=== PATIENT | female | born 1970 | race Caucasian/White ===

== ENCOUNTER 2023-05-19 10:26 | Day surgery (SDC) | payer OTHER ==
[2023-05-12 15:15] VITALS: BMI 27.4
[~2023-05-19 10:26] MED LIST: LACTATED RINGERS 1,000 ML IV SCH; LIDOCAINE 1% (10MG/ML) FOR IV START INTRADERMA PRN
[2023-05-19 11:02] VITALS: RESP 16; TEMP 96.9
[2023-05-19] MEDS ORDERED: LIDOCAINE 2% INJ 20 MG/ML (2 ML VIAL) ONE (12:07)
[2023-05-19] MEDS ORDERED: PROPOFOL 10 MG/ML 20 ML VIAL IV ONE (12:07)
--- NOTE | 2023-05-19 12:14 | P.PCN ---
Date of Procedure: 05/19/23 Procedure(s) Performed: BRIEF HISTORY: Patient is a 52-year-old, pleasant, white female scheduled for an upper endoscopy as a part of evaluation of long-standing history of GERD and intermittent dysphagia to solids. PROCEDURE PERFORMED: Esophagogastroduodenoscopy with biopsy. PREOPERATIVE DIAGNOSIS: Loss history of GERD and intermittent dysphagia to solids. IV sedation per anesthesia. PROCEDURE: After informed consent was obtained, the patient was brought into the endoscopy unit. IV sedation was administered by Anesthesia under continuous monitoring. Initially the Olympus GIF-140 video endoscope was inserted into the mouth. Esophagus intubated without any difficulty. It was gradually advanced into the stomach and duodenum and carefully examined. The bulb and the second part of the duodenum appeared normal. The scope at this time was withdrawn to the stomach, adequately insufflated with air, and upon careful examination, mucosa of the antrum, had mild gastritis and biopsies were done from this area. Mucosa of the body, cardia and the fundus appeared normal. The scope was then withdrawn into the esophagus. The GE junction was located at 39 cm from the incisors. There was circumferential erythema with some erosions at the distal esophagus consistent with LA grade a reflux esophagitis. Rest of the esophagus appeared normal and the patient tolerated the procedure well. IMPRESSION: 1. Circumferential erythema with one superficial erosion at the GE junction consistent with LA grade B reflux esophagitis. 2. Mild antral gastritis 3. No evidence of esophageal stricture. RECOMMENDATIONS: The findings of this examination were discussed with the patient as well as a family. Follow with the biopsy results. She was advised to continue with Protonix 40 mg daily and follow antireflux measures. She'll be seen in office in 3-4 months.
[2023-05-19 12:39] VITALS: BP 118/76; PULSE 62
== END 2023-05-19 12:51 | disposition home or self-care (01) ==
LOC: ORWHC2ENDO 10:26
PROVIDERS: ATTEND Internal Medicine Gastroenterology
DX: K29.50 Unspecified chronic gastritis without bleeding (principal); K21.00 Gastro-esophageal reflux disease with esophagitis, without bleeding; K31.9 Disease of stomach and duodenum, unspecified; E03.9 Hypothyroidism, unspecified; F41.9 Anxiety disorder, unspecified; Z79.899 Other long term (current) drug therapy
CPT/HCPCS: 88305; 88342; 43239; J2704; J2001

== ENCOUNTER → 2023-09-03 | Outpatient (CLI) | payer OTHER ==
--- NOTE | 2023-09-03 12:59 | CT ---
EXAMINATION TYPE: CT angio abdomen DATE OF EXAM: 09/03/2023 COMPARISON: NONE HISTORY: 52-year-old female M54.16, RADICULOPATHY, LUMBAR REGION. pre op lumbar sx, TECHNIQUE: Contiguous axial scanning of the abdomen before and after administration of 100 ml Omnipaq ue 370 IV contrast. Coronal and sagittal reconstructions performed. 3-D reconstructions generated on a dedicated independent workstation. CT DLP: 981 mGycm Automated exposure control for dose reduction was used. FINDINGS: Heart normal size without pericardial effusion. Lung bases clear without pleural effusion. Diminished attenuation of hepatic parenchyma and some focal fatty sparing along the gallbladder fossa . No abnormal gallbladder distention. Adrenal glands, kidneys, spleen with inferior splenule, and pancreas within normal limits. Mixing artifact within the splenic vein and main portal vein on the arterial phase imaging. No dilated small bowel, free fluid, or free air. No mesenteric or retroperitoneal lymphadenopathy. Mild stool burden. No pericolonic inflammatory change. The celiac axis, SMA, pelayo bilateral renal arteries, and GILBERTO are patent. Pelvis not imaged. Bones: Symmetric endplate spondylosis in the lower thoracic spine. Degenerative disc disease L5-S1 es pecially towards the left. IMPRESSION: 1. AT LEAST MODERATE HEPATIC STEATOSIS. CORRELATE WITH LFT's, LIPID PROFILE, AND PATIENT RISK FACTORS . 2. OTHERWISE, NO SPECIFIC ABNORMALITY SEEN.
== END | disposition home or self-care (01) ==
LOC: RADCTMAIN 09:07
PROVIDERS: ATTEND Neurological Surgery
DX: K76.0 Fatty (change of) liver, not elsewhere classified (principal); M54.16 Radiculopathy, lumbar region
CPT/HCPCS: 74175; Q9967

== ENCOUNTER → 2024-01-25 | Outpatient (CLI) | payer OTHER ==
--- NOTE | 2024-01-25 13:51 | CT ---
EXAMINATION TYPE: CT abdomen pelvis wo con DATE OF EXAM: 01/25/2024 COMPARISON: 09/03/2023 INDICATION: Lumbar surgery x1 mo ago. Pt now c/o abdominal pain, bloating, and pain with urination. DLP: 855 mGycm, Automated exposure control for dose reduction was used. CONTRAST: 0 mL of Isovue 300. Study performed with Oral Contrast TECHNIQUE: Axial images were obtained from above the diaphragm to the pubic rami in the axial plane a t 5 mm thick sections. Reconstructed images are reviewed on the computer in the coronal plane. FINDINGS: Limited CT sections are obtained the lung bases. The lung bases are clear. CT ABDOMEN: Liver: Normal Spleen: Normal Pancreas: Normal Adrenal glands: The adrenal glands are normal. Gallbladder: Normal Kidneys: No masses are evident. There is moderate left hydronephrosis. Hydroureter is present on the left. Increased density is adjacent to the psoas muscle. Retroperitoneal hemorrhage and rupture of th e renal collecting system should be considered. No obstructing renal stones are identified. Multiple phleboliths within the pelvis Aorta: Minimal Vascular calcification is within the aorta. Inferior vena cava: Normal. CT PELVIS: Loops of bowel within the abdomen and pelvis are normal. There are loops of bowel which are incom pletely distended or lack oral contrast limiting their evaluation. Appendix: Not identified. No dilated tubular structure inflammatory changes evident. Urinary bladder: Normal. Genitourinary structures: Uterus is absent. Adnexa are unremarkable. Osseous structures: No suspicious lytic or sclerotic lesions. IMPRESSION: 1. Ill-defined increased density along the left psoas muscle. Retroperitoneal hemorrhage should be c onsidered. This could be related to prior surgery. Rupture of the renal collecting system could be considered within the differential. 2. Hydronephrosis and mild hydroureter of the proximal ureter. Ureter is obscured by the increased de nsity in the retroperitoneal region.
== END | disposition home or self-care (01) ==
LOC: RADCTMAIN 11:05
PROVIDERS: ATTEND Neurological Surgery
DX: M47.896 Other spondylosis, lumbar region (principal); M54.16 Radiculopathy, lumbar region; N13.30 Unspecified hydronephrosis; K68.3 Retroperitoneal hematoma
CPT/HCPCS: 74176

== ENCOUNTER 2024-01-31 11:07 | Emergency (ER) | payer OTHER ==
[2024-01-31 12:00] VITALS: RESP 18; TEMP 98.4
--- NOTE | 2024-01-31 12:11 | ED ---
Abdominal Pain HPI - General Chief Complaint: Abdominal Pain Stated Complaint: ABD pain, bloating Time Seen by Provider: 01/31/24 11:20 Source: patient, RN notes reviewed Mode of arrival: ambulatory Limitations: no limitations - History of Present Illness Initial Comments: 53-year-old female presenting with diffuse abdominal pain x 6 weeks. States she had lumbar fusion surgery 6 weeks ago and has had pain and bloating ever since. States she had a CT of her abdomen and pelvis last week from her surgeon which revealed hydronephrosis. She was scheduled to receive another repeat CT however came in today due to pain worsening. States she feels bloated and can barely move or eat due to the pain. She was given Bactrim for possible UTI from her surgeon. Denies fever, dysuria, urinary frequency, urinary urgency, nausea, vomiting. The surgeon was Dr. Villasenor through [facility]. - Related Data Home Medications Medication Instructions Recorded Confirmed Ibuprofen [Motrin] 800 mg PO TID PRN 05/12/23 01/31/24 Levothyroxine Sodium 112 mcg PO DAILY 05/12/23 01/31/24 Pantoprazole [Protonix] 40 mg PO BID 05/12/23 01/31/24 Docusate Sodium [Dok] 100 mg PO BID PRN 01/31/24 01/31/24 Fluconazole [Diflucan] 100 mg PO DAILY 01/31/24 01/31/24 Gabapentin 600 mg PO TID 01/31/24 01/31/24 HYDROcodone/APAP 5-325MG [[place] 1 tab PO Q6HR PRN 01/31/24 01/31/24 5-325] Sulfamethox-Tmp 800-160Mg [Bactrim 1 tab PO Q12HR 01/31/24 01/31/24 DS 800-160 mg] methocarbamoL [Robaxin-750] 750 mg PO TID PRN 01/31/24 01/31/24 Allergies Allergy/AdvReac Type Severity Reaction Status Date / Time chlorahexadine AdvReac Itching Uncoded 01/31/24 11:19 Review of Systems ROS Statement: Those systems with pertinent positive or pertinent negative responses have been documented in the HPI. ROS Other: All systems not noted in ROS Statement are negative. Past Medical History Past Medical History: GERD/Reflux, Thyroid Disorder Additional Past Medical History / Comment(s): BACK PAIN History of Any Multi-Drug Resistant Organisms: None Reported Past Surgical History: Hysterectomy, Orthopedic Surgery Additional Past Surgical History / Comment(s): RT SHOULDER SX X 3. COLONOSCOPU. RT THYROIDECTOMY. lumbar fusion Past Anesthesia/Blood Transfusion Reactions: No Reported Reaction Past Psychological History: Anxiety, Depression Smoking Status: Former smoker Past Alcohol Use History: Occasional, Rare Past Drug Use History: None Reported - Past Family History Mother Family Medical History: Cancer Additional Family Medical History / Comment(s): SKIN General Exam Limitations: no limitations General appearance: alert, in no apparent distress ENT exam: Present: normal exam, mucous membranes moist Respiratory exam: Present: normal lung sounds bilaterally. Absent: respiratory distress, wheezes, rales, rhonchi, stridor Cardiovascular Exam: Present: regular rate, normal rhythm, normal heart sounds. Absent: systolic murmur, diastolic murmur, rubs, gallop, clicks GI/Abdominal exam: Present: soft, tenderness (Mild diffuse tenderness in all 4 quadrants. No skin changes.), normal bowel sounds. Absent: distended, guarding, rebound, rigid Back exam: Absent: CVA tenderness (R), CVA tenderness (L) Neurological exam: Present: alert, oriented X3, CN II-XII intact Psychiatric exam: Present: normal affect, normal mood Skin exam: Present: warm, dry, intact, normal color. Absent: rash Course Vital Signs 01/31/24 01/31/24 11:08 14:26 Temperature 98.4 F Pulse Rate 84 71 Respiratory 18 18 Rate Blood Pressure 137/83 123/81 O2 Sat by Pulse 98 99 Oximetry Medical Decision Making - Medical Decision Making Was pt. sent in by a medical professional or institution (, PA, CLINICAL SECRETARY, urgent care, hospital, or penitentiary...) When possible be specific @ -No Did you speak to anyone other than the patient for history (EMS, parent, family, police, friend...)? What history was obtained from this source @ -No Did you review nursing and triage notes (agree or disagree)? Why? @ -I reviewed and agree with nursing and triage notes Were old charts reviewed (outside hosp., previous admission, EMS record, old EKG, old radiological studies, urgent care reports/EKG's, penitentiary records)? Report findings @ -No old charts were reviewed Differential Diagnosis (chest pain, altered mental status, abdominal pain women, abdominal pain men, vaginal bleeding, weakness, fever, dyspnea, syncope, headache, dizziness, GI bleed, back pain, seizure, CVA, palpatations, mental health, musculoskeletal)? @ -Differential Abdominal Pain Women: Appendicitis, Cholecystitis, diverticulosis, ischemic bowel, pancreatitis, hepatitis, UTI, gastroenteritis, AAA, incarcerated hernia, bowel obstruction, constipation, inflammatory bowel, hepatitis, peptic ulcer disease, splenic infarction, perforated viscus, vulvitis, ovarian torsion, PID, kidney stone, placenta abruption, this is not meant to be an all-inclusive list EKG interpreted by me (3pts min.). @ -None X-rays interpreted by me (1pt min.). @ -None done CT interpreted by me (1pt min.). @ -CT of abdomen/pelvis revealed left hydronephrosis U/S interpreted by me (1pt. min.). @ -None done What testing was considered but not performed or refused? (CT, X-rays, U/S, labs)? Why? @ -None What meds were considered but not given or refused? Why? @ -None Did you discuss the management of the patient with other professionals (professionals i.e. DrSneha, PA, CLINICAL SECRETARY, lab, RT, psych nurse, forensic social worker, gizzard peeler, teacher, truant officer, watch case polisher)? Give summary @ -Discussed management of this case with Dr. Varela, Dr. Villasenor, and Dr. Chavez. Dr. Villasenor was contacted as he was patient's surgeon and pain likely related to surgery. Dr. Villasenor recommended urology consult for possible scope and ureter stent. Dr. Varela was contacted and recommended transfer to [facility]. Was smoking cessation discussed for >3mins.? @ -No Was critical care preformed (if so, how long)? @ -No Were there social determinants of health that impacted care today? How? (Homelessness, low income, unemployed, alcoholism, drug addiction, transportation, low edu. Level, literacy, decrease access to med. care, long term, rehab)? @ -No Was there de-escalation of care discussed even if they declined (Discuss DNR or withdrawal of care, Hospice)? DNR status @ -No What co-morbidities impacted this encounter? (DM, HTN, Smoking, COPD, CAD, Cancer, CVA, ARF, Chemo, Hep., AIDS, mental health diagnosis, sleep apnea, morbid obesity)? @ -None Was patient admitted / discharged? Hospital course, mention meds given and route, prescriptions, significant lab abnormalities, going to OR and other pertinent info. @ -Patient was transferred to [facility]. Patient was seen and evaluated for diffuse abdominal pain x 6 weeks status post lumbar fusion surgery. Vitals are stable. Patient has diffuse abdominal tenderness. Labs remarkable for lactic acid of 3. CT of abdomen and pelvis reveals left hydronephrosis. Patient's pain is controlled with IV morphine. Patient's surgeon Dr. Villasenor was contacted and advised urology consult. Dr. Varela urologist was contacted and recommended transfer to [facility] for care from original surgery team. Patient agreeable to plan and prefers transfer via private vehicle. Case discussed with Dr. Chavez. Undiagnosed new problem with uncertain prognosis? @ -No Drug Therapy requiring intensive monitoring for toxicity (Heparin, Nitro, Insulin, Cardizem)? @ -No Were any procedures done? @ -No Diagnosis/symptom? @ -Abdominal pain s/p surgery Acute, or Chronic, or Acute on Chronic? @ -Acute Uncomplicated (without systemic symptoms) or Complicated (systemic symptoms)? @ -Default Side effects of treatment? @ -No Exacerbation, Progression, or Severe Exacerbation? @ -No Poses a threat to life or bodily function? How? (Chest pain, USA, IA, pneumonia, PE, COPD, DKA, ARF, appy, cholecystitis, CVA, Diverticulitis, Homicidal, Suicidal, threat to staff... and all critical care pts) @ -No - Lab Data Result diagrams: 01/31/24 11:52 01/31/24 11:52 Lab Results 01/31/24 01/31/24 01/31/24 Range/Units 11:52 11:52 11:52 WBC 5.1 (3.8-10.6) k/uL RBC 4.57 (3.80-5.40) m/uL Hgb 14.1 (11.4-16.0) gm/dL Hct 44.4 (34.0-46.0) % MCV 97.0 (80.0-100.0) fL MCH 30.9 (25.0-35.0) pg MCHC 31.9 (31.0-37.0) g/dL RDW 14.4 (11.5-15.5) % Plt Count 309 (150-450) k/uL MPV 7.7 Neutrophils % 63 % Lymphocytes % 28 % Monocytes % 6 % Eosinophils % 1 % Basophils % 0 % Neutrophils # 3.2 (1.3-7.7) k/uL Lymphocytes # 1.4 (1.0-4.8) k/uL Monocytes # 0.3 (0-1.0) k/uL Eosinophils # 0.1 (0-0.7) k/uL Basophils # 0.0 (0-0.2) k/uL Hypochromasia Slight Sodium 140 (137-145) mmol/L Potassium 4.9 (3.5-5.1) mmol/L Chloride 105 (98-107) mmol/L Carbon Dioxide 24 (22-30) mmol/L Anion Gap 11 mmol/L BUN 14 (7-17) mg/dL Creatinine 0.67 (0.52-1.04) mg/dL Est GFR (CKD-EPI)AfAm >90 (>60 ml/min/1.73 sqM) Est GFR (CKD-EPI)NonAf >90 (>60 ml/min/1.73 sqM) Glucose 94 (74-99) mg/dL Lactic Ac Sepsis Rflx Plasma Lactic Acid Cornell (0.7-2.0) mmol/L Calcium 10.1 (8.4-10.2) mg/dL Total Bilirubin 0.4 (0.2-1.3) mg/dL AST 36 (14-36) U/L ALT 33 (4-34) U/L Alkaline Phosphatase 113 (38-126) U/L Total Protein 8.4 H (6.3-8.2) g/dL Albumin 4.8 (3.5-5.0) g/dL Lipase 73 (23-300) U/L Urine Color Colorless Urine Appearance Clear (Clear) Urine pH 5.0 (5.0-8.0) Ur Specific Alsen 1.004 (1.001-1.035) Urine Protein Negative (Negative) Urine Glucose (UA) Negative (Negative) Urine Ketones Negative (Negative) Urine Blood Negative (Negative) Urine Nitrite Negative (Negative) Urine Bilirubin Negative (Negative) Urine Urobilinogen <2.0 (<2.0) mg/dL Ur Leukocyte Esterase Negative (Negative) 01/31/24 01/31/24 01/31/24 Range/Units 11:52 12:37 14:46 WBC (3.8-10.6) k/uL RBC (3.80-5.40) m/uL Hgb (11.4-16.0) gm/dL Hct (34.0-46.0) % MCV (80.0-100.0) fL MCH (25.0-35.0) pg MCHC (31.0-37.0) g/dL RDW (11.5-15.5) % Plt Count (150-450) k/uL MPV Neutrophils % % Lymphocytes % % Monocytes % % Eosinophils % % Basophils % % Neutrophils # (1.3-7.7) k/uL Lymphocytes # (1.0-4.8) k/uL Monocytes # (0-1.0) k/uL Eosinophils # (0-0.7) k/uL Basophils # (0-0.2) k/uL Hypochromasia Sodium (137-145) mmol/L Potassium (3.5-5.1) mmol/L Chloride (98-107) mmol/L Carbon Dioxide (22-30) mmol/L Anion Gap mmol/L BUN (7-17) mg/dL Creatinine (0.52-1.04) mg/dL Est GFR (CKD-EPI)AfAm (>60 ml/min/1.73 sqM) Est GFR (CKD-EPI)NonAf (>60 ml/min/1.73 sqM) Glucose (74-99) mg/dL Lactic Ac Sepsis Rflx Y Plasma Lactic Acid Cornell 3.0 H* 2.3 H* (0.7-2.0) mmol/L Calcium (8.4-10.2) mg/dL Total Bilirubin (0.2-1.3) mg/dL AST (14-36) U/L ALT (4-34) U/L Alkaline Phosphatase (38-126) U/L Total Protein (6.3-8.2) g/dL Albumin (3.5-5.0) g/dL Lipase (23-300) U/L Urine Color Urine Appearance (Clear) Urine pH (5.0-8.0) Ur Specific Alsen (1.001-1.035) Urine Protein (Negative) Urine Glucose (UA) (Negative) Urine Ketones (Negative) Urine Blood (Negative) Urine Nitrite (Negative) Urine Bilirubin (Negative) Urine Urobilinogen (<2.0) mg/dL Ur Leukocyte Esterase (Negative) Disposition Clinical Impression: Abdominal pain, Hydronephrosis Disposition: OTHER INSTITUTION NOT DEFINED Condition: Stable Additional Instructions: Please go to [facility] immediately. Referrals: Lesia Sandhu DO [Primary Care Provider] - 1-2 days Time of Disposition: 16:13 - Out of Hospital Transfer - Req. Specs Out of Hospital Transfer - Requested Specifics: Other Emergency Center ([facility])
[2024-01-31 12:22] LABS: Basophils % (A) 0 %; Eosinophils # (A) 0.1 k/uL (0-0.7); Eosinophils % (A) 1 %; HCT 44.4 % (34.0-46.0); HGB 14.1 gm/dL (11.4-16.0); Hypochromasia Slight; Lymphocytes # (A) 1.4 k/uL (1.0-4.8); Lymphocytes % (A) 28 %; MCH 30.9 pg (25.0-35.0); MCHC 31.9 g/dL (31.0-37.0); Mean Platelet Volume 7.7; Monocytes # (A) 0.3 k/uL (0-1.0); Monocytes % (A) 6 %; Neutrophils # (A) 3.2 k/uL (1.3-7.7); Neutrophils % (A) 63 %; Platelet Count 309 k/uL (150-450); RBC 4.57 m/uL (3.80-5.40); RDW 14.4 % (11.5-15.5); WBC 5.1 k/uL (3.8-10.6)
[2024-01-31 12:26] LABS: Appearance,Urine Clear (Clear); Bilirubin,Urine Negative (Negative); Blood,Urine Negative (Negative); Color,Urine Colorless; Glucose,Urine (UA) Negative (Negative); Ketones,Urine Negative (Negative); Leukocyte Esterase,Urine Negative (Negative); Nitrite,Urine Negative (Negative); Protein,Urine Negative (Negative); Specific Gravity,Urine 1.004 (1.001-1.035); Urobilinogen,Urine <2.0 mg/dL (<2.0)
[2024-01-31] MEDS: MORPHINE SULFATE 4 MG/ML SYRINGE IVP STA (12:31)
[2024-01-31 12:34] LABS: ALT 33 U/L (4-34); AST 36 U/L (14-36); African American GFR (CKD) >90 (>60 ml/min/1.73 sqM); Albumin 4.8 g/dL (3.5-5.0); Alkaline Phosphatase 113 U/L (38-126); Anion Gap 11 mmol/L; Blood Urea Nitrogen 14 mg/dL (7-17); Calcium 10.1 mg/dL (8.4-10.2); Carbon Dioxide 24 mmol/L (22-30); Chloride 105 mmol/L (98-107); Glucose 94 mg/dL (74-99); Lipase 73 U/L (23-300); Non-African American GFR(CKD) >90 (>60 ml/min/1.73 sqM); Potassium 4.9 mmol/L (3.5-5.1); Sodium 140 mmol/L (137-145); Total Bilirubin 0.4 mg/dL (0.2-1.3); Total Protein 8.4 g/dL (6.3-8.2)
--- NOTE | 2024-01-31 13:30 | CT ---
EXAMINATION TYPE: CT abdomen pelvis w con DATE OF EXAM: 01/31/2024 COMPARISON: 01/25/2024 HISTORY: 53-year-old female c/o of bloating and left sided abdominal pain TECHNIQUE: Contiguous axial scanning of the abdomen and pelvis following administration of 100 ml Iso yudi 300 IV contrast. Delayed images through the kidneys and coronal/sagittal reconstructions perform ed. CT DLP: 955.8 mGycm Automated exposure control for dose reduction was used. FINDINGS: Heart normal size without pericardial effusion. Some minimal strandy atelectasis at the pos terior lung bases. Low-attenuation hepatic parenchyma compatible with fatty infiltration. Portal venous system is patent . No biliary ductal dilatation. Hydropic gallbladder 4.3 cm wide but without any surrounding inflamma tion, probably relating to fasting state. Adrenal glands, right kidney, spleen with tiny anterior splenule, and pancreas within normal limits. There is redemonstration of moderate left hydronephrosis with delayed excretion of contrast from the left ureter. Incisional scar along the left paramedian mid to lower anterior abdominal wall. There is some ongoing asymmetric thickening of the left anterior abdominal wall musculature and ongoing strandy density ex tending along the left retroperitoneum and anterior left paraspinal region. No free fluid or free air. Scattered mild to moderate stool. No pericolonic inflammatory change. Bladder partially distended. Uterus surgically absent. Numerous pelvic phleboliths. Neither ovary abhishek devon identified. No abnormal fluid collection in the pelvis or pelvic lymphadenopathy. Bones: Redemonstrated changes relating to anterior and posterior lumbar fusion from L3 through S1 lev els. Note anterior positioning of the L3-L4 and L4-L5 interbody devices and overlying paravertebral s oft tissue swelling here. IMPRESSION: 1. ONGOING MODERATE LEFT HYDRONEPHROSIS/OBSTRUCTIVE UROPATHY. 2. THE LEFT URETER COURSES INTO SIMILAR PREVERTEBRAL SOFT TISSUE THICKENING ALONG THE PATIENT'S L3-S1 LUMBAR FUSION. THE SOFT TISSUE THICKENING AND STRANDING CONTINUES TO EXTEND LATERALLY ALONG THE LEFT RETROPERITONEUM. THE ETIOLOGY REMAINS UNCLEAR. GIVEN ANTERIOR POSITIONING OF THE L3-L4 AND L4-L5 INT ERBODY DEVICES, CORRELATE TO EXCLUDE AN INFECTIOUS ETIOLOGY. POSTOPERATIVE SCARRING AND ONGOING POSTO PERATIVE INFLAMMATION ARE CONSIDERATIONS WELL. NO SAFIA PROGRESSIVE BONY DESTRUCTION OR ABSCESS FO RMATION IS SEEN.
[2024-01-31 16:51] VITALS: BP 122/80; PULSE 67
== END 2024-01-31 16:29 | disposition other institution (70) ==
LOC: EC 11:07
DX: N13.2 Hydronephrosis with renal and ureteral calculous obstruction (principal); Z87.891 Personal history of nicotine dependence; Z88.8 Allergy status to other drugs, medicaments and biological substances
CPT/HCPCS: 36415; 80053; 83605; 83690; 85025; 81003; 74177; 99285; 96374; J2270; Q9967

== ENCOUNTER → 2024-03-29 | Outpatient (CLI) | payer OTHER ==
--- NOTE | 2024-03-29 16:42 | US ---
EXAMINATION TYPE: US kidneys/renal and bladder DATE OF EXAM: 03/29/2024 COMPARISON: CT 01/31/24 CLINICAL INDICATION: Female, 53 years old with history of N13.39 HYDRONEPHROSIS; December lumbar surgery , left hydronephrosis and hydroureter since. Recent stent removal. EXAM MEASUREMENTS: Right Kidney: 10.6x3.8x6.5 cm Left Kidney: 10.8x5.4x6.0 cm Right Kidney: No hydronephrosis or masses seen Left Kidney: Moderate hydronephrosis Bladder: wnl Bilateral Jets seen: Yes No nephrolithiasis is seen. No right hydronephrosis. Moderate left hydronephrosis. Cortical medullary differentiation is maintained bilaterally. No masses are identified. The urinary bladder is anechoi c. Bilateral ureteral jets are seen. IMPRESSION: Moderate left hydronephrosis redemonstrated. Both ureteral jets are identified.
[2024-03-29 20:45] LABS: BUN/Creat Ratio 19.67 Ratio (12.00-20.00); Blood Urea Nitrogen 11.8 mg/dL (9.0-27.0); Calcium 9.7 mg/dL (8.7-10.3); Carbon Dioxide 24.7 mmol/L (21.6-31.8); Chloride 105 mmol/L (96-109); Glucose 85 mg/dL (70-110); Potassium 4.4 mmol/L (3.5-5.5); Sodium 140 mmol/L (135-145)
== END | disposition home or self-care (01) ==
LOC: RADUSWWP 11:16
PROVIDERS: ATTEND Student in an Organized Health Care Education/Training Program
DX: N13.39 Other hydronephrosis (principal)
CPT/HCPCS: 76770; 80048